=== PATIENT | male | born 1960 | race Two or more races ===

== ENCOUNTER 2018-10-16 14:00 | Inpatient (IN) | payer OTHER ==
[~2018-10-16] VITALS: Ht 152.4 cm; Wt 49.4 kg
--- NOTE | 2018-10-16 14:20 | NUR ---
BIB [facility] FOR [facility], PT WITH TRACHEOSTOMY HOOKED TO COOL AEROSOL, NOTED W G-TUBE, BLOOD NOTED AT PENILE AREA. TO ER BED 2, HOOKED TO MONITOR, CHANGED TO GOWN, , AWAITING MD DUKES.
--- NOTE | 2018-10-16 14:38 | NUR ---
DR PADILLA AT BEDSIDE
[2018-10-16] MEDS ORDERED: IV NS 0.9% 1,000 ML BAG IV ONE (15:00)
[2018-10-16 15:11] LABS: BASOPHILS % (AUTO) 0.3 % (0.0-2.0); EOSINOPHILS % (AUTO) 0.2 % (0.0-6.0); HEMATOCRIT 29 % (39-51); HEMOGLOBIN 9.5 g/dL (13.5-17.5); LYMPHOCYTES # (AUTO) 0.4 /CMM (0.8-4.8); LYMPHOCYTES % (AUTO) 2.3 % (20.0-44.0); MEAN CORPUSCULAR HGB CONC 33 g/dl (31.0-36.0); MEAN CORPUSCULAR VOLUME 89 fL (80-96); MONOCYTES # (AUTO) 0.6 /CMM (0.1-1.30); MONOCYTES % (AUTO) 3.2 % (2.0-12.0); NEUTROPHILS # (AUTO) 16.7 /CMM (1.8-8.9); PLATELET COUNT (AUTO) 478 /CMM (150-450); RED BLOOD CELL COUNT(AUTO) 3.23 MIL/uL (4.5-6.0); WHITE BLOOD COUNT (AUTO) 17.8 K/uL (4.3-11.0)
[2018-10-16 15:15] LABS: CALCIUM, SERUM 9.3 mg/dL (8.5-10.1); CARBON DIOXIDE 25 mmol/L (21-32); CHLORIDE 97 mmol/L (98-107); CREATININE 0.6 mg/dL (0.6-1.3); GLUCOSE 134 mg/dL (74-106); POTASSIUM 4.5 mmol/L (3.5-5.1); SODIUM SERUM 133 mmol/L (136-145); UREA NITROGEN, BLOOD 19 mg/dL (7-18)
[2018-10-16 15:20] LABS: ALANINE AMINOTRANSFERASE 30 U/L (12-78); ALBUMIN 2.6 g/dL (3.4-5.0); ALKALINE PHOSPHATASE 139 U/L (46-116); ASPARTATE AMINOTRANSFERASE 22 U/L (15-37); BILIRUBIN,DIRECT 0.1 mg/dL (0.0-0.2); BILIRUBIN,TOTAL 0.4 mg/dL (0.2-1.0); TOTAL PROTEIN, SERUM 7.9 g/dL (6.4-8.2)
[2018-10-16] MEDS ORDERED: LIDOCAINE 2% JEL UROJET 10 ML MM ONE (15:26)
--- NOTE | 2018-10-16 15:34 | NUR ---
UNSUCCESSFUL WITH INSERTING CASTRO CATHETER. AWARE
[2018-10-16] MEDS ORDERED: FENTANYL PF 100MCG/2ML AMPUL ONE (15:50)
[2018-10-16] MEDS ORDERED: FENTANYL PF 100MCG/2ML AMPUL IV ONE (16:00)
--- NOTE | 2018-10-16 16:06 | NUR ---
CALLED DR SÁNCHEZ OFFICE ([phone]), STAFF STATED THAT THY WOULD HAVE HIM CALL BACK.
[2018-10-16] MEDS ORDERED: METO50TA16 GT (16:11)
[2018-10-16] MEDS ORDERED: AMIN30LI2 GT (16:11)
[2018-10-16] MEDS ORDERED: ACET160S GT (16:11)
[2018-10-16] MEDS ORDERED: VIT500LI GT (16:11)
[2018-10-16] MEDS ORDERED: DEXT15DR6 EACHEYE (16:11)
[2018-10-16] MEDS ORDERED: DOCU50LI GT (16:11)
[2018-10-16] MEDS ORDERED: NA P133E RC (16:11)
[2018-10-16] MEDS ORDERED: LEVE100S2 GT (16:11)
[2018-10-16] MEDS ORDERED: ALBU2.5V38 IH (16:11)
[2018-10-16] MEDS ORDERED: CHLO473M3 MM (16:11)
[2018-10-16] MEDS ORDERED: CRAN425C6 PO (16:11)
[2018-10-16] MEDS ORDERED: CLON0.1T GT (16:11)
[2018-10-16] MEDS ORDERED: BISA10SU61 RC (16:11)
[2018-10-16] MEDS ORDERED: AMLO10TA7 GT (16:11)
[2018-10-16] MEDS ORDERED: LOSA100T31 GT (16:11)
[2018-10-16] MEDS ORDERED: MULT9LIQ5 GT (16:11)
[2018-10-16] MEDS ORDERED: LACT250L14 GT (16:11)
[2018-10-16] MEDS ORDERED: ALBU2.5V11 IH (16:11)
[2018-10-16] MEDS ORDERED: MAGN2400 GT (16:11)
[2018-10-16] MEDS ORDERED: IPRA0.2S9 IH ×2 (16:11)
[2018-10-16 16:22] LABS: APPEARANCE,URINE Cloudy (CLEAR); BILIRUBIN,URINE MODERATE (NEGATIVE); BLOOD, URINE Large Ery/uL (NEGATIVE); COLOR,URINE Amber (YELLOW); KETONES,URINE Trace (NEGATIVE); LEUKOCYTE ESTERASE ,URINE Large (NEGATIVE); NITRITE, URINE Positive (NEGATIVE); PROTEIN,URINE >=300 mg/dl (NEGATIVE); UGLUCOSE Negative (NEGATIVE)
[2018-10-16] MEDS ORDERED: PIPERACILLIN /TAZOBACTAM 3.375 G in IV D5W 50 ML IV ONE (17:00)
[2018-10-16 17:08] LABS: BACTERIA,URINE Moderate /HPF (None Seen); RBC,URINE 81-100 /HPF (0-2); SQUAMOUS EPITHELIAL CELL,UR Few /HPF (None Seen); WBC,URINE 51-80 /HPF (0-3)
[2018-10-16 17:09] LABS: URINE AMORPHOUS URATE Moderate /HPF (None Seen)
[2018-10-16 17:54] LABS: BAND % (MANUAL) 2 % (0.0-5.0); NEUTROPHILS % (MANUAL) 90 (42-76)
[2018-10-16 17:55] LABS: EOSINOPHILS % (MANUAL) 1 % (0-4); LYMPHOCYTES % (MANUAL) 2 % (16-48); MONOCYTES % (MANUAL) 5 % (0-11.0)
[2018-10-16] MEDS ORDERED: HYDROCODONE/APAP 10/325MG 1 EA TABLET GT PRN (18:00)
[2018-10-16] MEDS ORDERED: ACETAMINOPHEN 650 MG/SUPP.RECT RC PRN (18:00)
[2018-10-16] MEDS ORDERED: ALBUTEROL FS 2.5 MG/3 ML VIAL.NEB NEB PRN (18:00)
[2018-10-16] MEDS ORDERED: TEMAZEPAM 15 MG CAPSULE GT PRN (18:00)
[2018-10-16] MEDS ORDERED: MAG HYDROX/AL HYDROX/SIMETH 30 ML UDC PO PRN (18:00)
[2018-10-16] MEDS ORDERED: CLONIDINE HCL 0.1 MG TABLET GT PRN (18:00)
[2018-10-16] MEDS ORDERED: BISACODYL SUPP (10 MG) 10 MG/SUPP.RECT SUPP.RECT RC PRN (18:00)
[2018-10-16] MEDS ORDERED: MAGNESIUM HYDROXIDE 30 ML UDC PO PRN (18:00)
[2018-10-16] MEDS ORDERED: IPRATROPIUM NEB FS 0.5 MG/2.5 ML AMPUL.NEB NEB PRN (18:00)
[2018-10-16] MEDS ORDERED: ONDANSETRON HCL/PF 4 MG/2 ML VIAL IVP PRN (18:00)
[2018-10-16] MEDS ORDERED: ACETAMINOPHEN 325 MG TABLET MC PRN (18:00)
[2018-10-16] MEDS ORDERED: NA PHOS,M-B/NA PHOS,DI-BA 1 EA ENEMA RC PRN (18:00)
--- NOTE | 2018-10-16 18:04 | NUR ---
[facility] BED 105
--- NOTE | 2018-10-16 18:17 | NUR ---
REPORT GIVEN TO ROBERTA ELY OF [facility]
--- NOTE | 2018-10-16 18:30 | NUR ---
TD RN NOTES RECEIVED PATIENT FROM ER. PATIENT ALERT, NONE VERBAL. PATIENT ORIENTED TO ROOM. VS TAKEN. PATIENT STABLE. BED IN LOW LOCKED POSITION. PATIENT WITH TRACK PLACED ON 5L OF OXYGEN SATURATING 100%. PERIPHERAL IV INTACT PATENT. CALL LIGHT WITHIN REACH. WILL ENDORSE CARE TO PM SHIFT.
--- NOTE | 2018-10-16 19:56 | NUR ---
[facility] RN OPENING NOTES RECEIVED REPORT FROM MOO ELY. PATIENT A/A/O X2-3 W/ SOME CONFUSION BUT ABLE TO MAKE NEEDS KNOWN & STATE PAIN. BREATHING EVEN & UNLABORED W/ TRACH INTACT & TOLERATING COOL AEROSOL, SATING WELL @ 100%. ON TELE W/ SINUS RHYTHM, HR 95. LEFT AC IV #20 INTACT & PATENT W/ DRESSING CDI & IVF NS INFUSING WELL @ 75 ML/HR. G-TUBE PATENT & FLUSHING WELL. DENIES ANY PAIN OR DISCOMFORT @ THIS TIME. SAFETY MEASURES IN PLACE W/ SIDE RAILS UP & BED ALARM ON. INSTRUCTED TO USE CALL LIGHT FOR ASSISTANCE. WILL CONTINUE TO MONITOR.
[2018-10-16 20:00] VITALS: BP 99/63
[2018-10-16] MEDS ORDERED: PIPERACILLIN /TAZOBACTAM 3.375 G in IV D5W 50 ML IV SCH (21:00)
[2018-10-16] MEDS: CHLORHEXIDINE GLUCONATE 15 ML UDC MM SCH (21:33)
[2018-10-16] MEDS: ENOXAPARIN SODIUM 40 MG/0.4 ML DISP.SYRIN SQ SCH (21:35)
[2018-10-17] VITALS: BP 104/66
[2018-10-17] MEDS: PIPERACILLIN /TAZOBACTAM 3.375 G in IV D5W 100 ML IV SCH ×4 (00:14→23:56)
[2018-10-17] MEDS: IV NS 0.9% 1,000 ML IV PRN ×2 (00:27→16:13)
[2018-10-17 04:00] VITALS: BP 114/62
[2018-10-17 06:30] LABS: BASOPHILS # (AUTO) 0.2 /CMM (0.0-0.2); EOSINOPHILS % (AUTO) 1.6 % (0.0-6.0); HEMATOCRIT 24 % (39-51); HEMOGLOBIN 8.1 g/dL (13.5-17.5); LYMPHOCYTES # (AUTO) 0.8 /CMM (0.8-4.8); LYMPHOCYTES % (AUTO) 7.8 % (20.0-44.0); MEAN CORPUSCULAR HGB CONC 34 g/dl (31.0-36.0); MEAN CORPUSCULAR VOLUME 88 fL (80-96); MONOCYTES # (AUTO) 0.8 /CMM (0.1-1.30); MONOCYTES % (AUTO) 7.7 % (2.0-12.0); NEUTROPHILS # (AUTO) 8.5 /CMM (1.8-8.9); NEUTROPHILS % (AUTO) 80.9 % (43.0-81.0); PLATELET COUNT (AUTO) 409 /CMM (150-450); RED BLOOD CELL COUNT(AUTO) 2.75 MIL/uL (4.5-6.0); WHITE BLOOD COUNT (AUTO) 10.5 K/uL (4.3-11.0)
[2018-10-17 07:05] LABS: THYROID STIMULATING HORMONE 1.256 uIU/mL (0.358-3.74)
[2018-10-17 07:11] LABS: CALCIUM, SERUM 8.5 mg/dL (8.5-10.1); CREATININE 0.5 mg/dL (0.6-1.3); PHOSPHORUS 4.3 mg/dL (2.5-4.9); POTASSIUM 3.7 mmol/L (3.5-5.1)
--- NOTE | 2018-10-17 07:30 | NUR ---
[facility] RN AM NOTES RECEIVED PATIENT IN BEDD, A/A/O X2-3 W/ SOME CONFUSION BUT ABLE TO MAKE NEEDS KNOWN & STATE PAIN. YES/NO ANSWER. WITH PORTEX 7 TRACH ON COOL AEROSOL, FIO2 35% BREATHING EVEN & UNLABORED, ON TELE W/ SINUS RHYTHM, WITH PACs HR 85. LEFT AC IV #20 WITH NS AT 75 ML/HR INFUSING WELL. SITE CLEAR. G-TUBE PATENT, CHECKED FOR PLACEMENT, 0 RESIDUAL, CLAMPED FOR NOW. FOR NUTRITION EVAL. DENIES ANY PAIN OR DISCOMFORT @ THIS TIME. SAFETY MEASURES IN PLACE W/ SIDE RAILS UP & BED ALARM ON. INSTRUCTED TO USE CALL LIGHT FOR ASSISTANCE. WILL CONTINUE TO MONITOR.
[2018-10-17 08:00] VITALS: BP 105/70
[2018-10-17 08:12] LABS: BAND % (MANUAL) 1 % (0.0-5.0); EOSINOPHILS % (MANUAL) 1 % (0-4); LYMPHOCYTES % (MANUAL) 9 % (16-48); MONOCYTES % (MANUAL) 5 % (0-11.0); NEUTROPHILS % (MANUAL) 84 (42-76)
[2018-10-17] MEDS: POLYVINYL ALCOHOL 15 ML BOTTLE OP SCH ×2 (08:41→17:02)
[2018-10-17] MEDS: LEVETIRACETAM SOL (5 ML) 100 MG/ML UDC GT SCH ×2 (08:42→17:01)
[2018-10-17] MEDS: DOCUSATE SODIUM LIQ 100 MG/10 ML UDC GT SCH ×2 (08:42→17:00)
[2018-10-17] MEDS: CHLORHEXIDINE GLUCONATE 15 ML UDC MM SCH ×2 (08:43→20:15)
[2018-10-17] MEDS: MULTIVIT W/MINERALS 1 TAB TABLET GT SCH (08:43)
[2018-10-17] MEDS: PROSOURCE / PROSTAT (PYXIS) 30 ML UDC GT SCH (08:44)
[2018-10-17] MEDS: METOPROLOL TARTRATE 50 MG TABLET GT SCH ×2 (08:44→16:58)
--- NOTE | 2018-10-17 09:30 | NUR ---
[facility] RN NOTES DUE MEDS GIVEN.
--- NOTE | 2018-10-17 10:30 | NUR ---
[facility] RN NOTES PATIENT SEEN BY ACTUARIAL ASSOCIATE AND WITH RECOMMENDATION FOR JEVITY 1.2 GT FEEDING. PER HER PT ALSO IS ON PUREED DIET AND SUGGESTED FOR SWALLOW EVAL. WILL NOTIFY .
[2018-10-17 12:00] VITALS: BP 98/64
[2018-10-17 16:00] VITALS: BP 106/73
--- NOTE | 2018-10-17 19:21 | NUR ---
[facility] RN CLOSING NOTES PATIENT IN BED RESTING, A/A/O X2-3 W/ SOME CONFUSION BUT ABLE TO MAKE NEEDS KNOWN & STATE PAIN. BREATHING EVEN & UNLABORED W/ TRACH INTACT & TOLERATING COOL AEROSOL, SATING WELL @ 98% -100%. ON TELE W/ SINUS RHYTHM, HR 95. LEFT AC IV #20 INTACT & PATENT W/ DRESSING CDI & IVF NS INFUSING WELL @ 75 ML/HR. G-TUBE PATENT & FLUSHING WELL. DENIES ANY PAIN OR DISCOMFORT @ THIS TIME. SAFETY MEASURES IN PLACE W/ SIDE RAILS UP & BED ALARM ON. INSTRUCTED TO USE CALL LIGHT FOR ASSISTANCE. ALL NEEDS MET. PM CARE DONE. WITH FLEXISEAL IN PLACE. O OUTPUT. PM NURSE TO START GTF JEVITY, NOT AVAILABLE EARLIER. NO OTHER SIGNIFICANT CHANGE IN CONDITION. ENDORSED TO NEXT SHIFT FOR TITA.
--- NOTE | 2018-10-17 19:26 | NUR ---
TD RN NOTE: RECEIVED PT ON BED ALERT AND ORIENTED X2, ABLE TO ANSWER YES OR NO QUESTIONS. NO APPARENT DISTRESS NOTED. ON COOL AEROSOL FI02 35%, NO SOB NOTED. SATURATING WELL. NO FACIAL GRIMACING OR ANY SIGNS OF PAIN NOTED. SINUS RHYTHM ON TELE MONITOR HR 80BPM. GT INTACT AND PATENT, FLUSHING WELL. IV ON LEFT ANTECUBITAL #20 INTACT AND PATENT, IVF INFUSING WELL. KEPT CLEAN, DRY AND COMFORTABLE. CALL LIGHT PLACED WITHIN REACH. SAFETY AND FALL PRECAUTIONS OBSERVED AND MAINTAINED. WILL CONTINUE TO MONITOR PT.
[2018-10-17 20:00] VITALS: BP 113/75
[2018-10-17] MEDS: ENOXAPARIN SODIUM 40 MG/0.4 ML DISP.SYRIN SQ SCH (20:17)
[2018-10-18] VITALS: BP 109/78
[2018-10-18 04:00] VITALS: BP 111/64
[2018-10-18 06:50] LABS: BASOPHILS % (AUTO) 0.4 % (0.0-2.0); EOSINOPHILS % (AUTO) 1.7 % (0.0-6.0); HEMATOCRIT 24 % (39-51); HEMOGLOBIN 8.2 g/dL (13.5-17.5); LYMPHOCYTES # (AUTO) 1.2 /CMM (0.8-4.8); LYMPHOCYTES % (AUTO) 18.1 % (20.0-44.0); MEAN CORPUSCULAR HGB CONC 34 g/dl (31.0-36.0); MEAN CORPUSCULAR VOLUME 87 fL (80-96); MONOCYTES # (AUTO) 0.8 /CMM (0.1-1.30); MONOCYTES % (AUTO) 11.8 % (2.0-12.0); NEUTROPHILS # (AUTO) 4.3 /CMM (1.8-8.9); PLATELET COUNT (AUTO) 379 /CMM (150-450); RED BLOOD CELL COUNT(AUTO) 2.76 MIL/uL (4.5-6.0); WHITE BLOOD COUNT (AUTO) 6.4 K/uL (4.3-11.0)
[2018-10-18 07:03] LABS: CALCIUM, SERUM 8.5 mg/dL (8.5-10.1); CREATININE 0.5 mg/dL (0.6-1.3); MAGNESIUM 2.1 mg/dL (1.8-2.4); POTASSIUM 3.4 mmol/L (3.5-5.1)
--- NOTE | 2018-10-18 07:13 | NUR ---
TD RN NOTE: NO CHANGES NOTED THROUGHOUT THE SHIFT. NO APPARENT DISTRESS NOTED. DENIES PAIN AND DISCOMFORT AT THIS TIME. ON COOL AEROSOL, SATURATING WELL. NO SOB NOTED. SUCTIONED NEEDED. ON TELE MONITOR SINUS RHYTHM HR 80BPM. IV ON LEFT ANTECUBITAL #20 INTACT AND PATENT, IVF INFUSING WELL. GT INTACT, ABLE TO TOLERATE FEEDING WELL. NO RESIDUAL NOTED AT THIS TIME. CALL LIGHT PLACED WITHIN REACH. KEPT CLEAN, DRY AND COMFORTABLE. SAFETY AND FALL PRECAUTIONS OBSERVED AND MAINTAINED. WILL ENDORSE TO DAY SHIFT RN FOR CONTINUITY OF CARE.
--- NOTE | 2018-10-18 07:30 | NUR ---
[facility] RN AM NOTES RECEIVED PATIENT IN BEDD, A/A/O X2-3 W/ SOME CONFUSION BUT ABLE TO MAKE NEEDS KNOWN & STATE PAIN. YES/NO ANSWER. WITH PORTEX 7 TRACH ON COOL AEROSOL, FIO2 35% BREATHING EVEN & UNLABORED, ON TELE W/ SINUS RHYTHM, HR 85. LEFT AC IV #20 WITH NS AT 75 ML/HR INFUSING WELL. SITE CLEAR. G-TUBE CHECKED FOR PLACEMENT. WITH ONGOING JEVITY AT 35 ML/HR WELL TOLERATED. 0 RESIDUAL, DENIES ANY PAIN OR DISCOMFORT @ THIS TIME. SAFETY MEASURES IN PLACE W/ SIDE RAILS UP & BED ALARM ON. INSTRUCTED TO USE CALL LIGHT FOR ASSISTANCE. WILL CONTINUE TO MONITOR.
[2018-10-18 08:00] VITALS: BP 106/70
--- NOTE | 2018-10-18 08:27 | NUR ---
[facility] RN NOTES DR. SÁNCHEZ AT BEDSIDE. RELAYED. CRITICAL LAB RESULT: POSITIVE BLOOD CULTURE 1 OUT OF 4 GRAM [-] RODS.
[2018-10-18] MEDS: MULTIVIT W/MINERALS 1 TAB TABLET GT SCH (08:43)
[2018-10-18] MEDS: PIPERACILLIN /TAZOBACTAM 3.375 G in IV D5W 100 ML IV SCH ×2 (08:43→17:18)
[2018-10-18] MEDS: DOCUSATE SODIUM LIQ 100 MG/10 ML UDC GT SCH ×2 (08:43→17:20)
[2018-10-18] MEDS: LEVETIRACETAM SOL (5 ML) 100 MG/ML UDC GT SCH ×2 (08:44→17:20)
[2018-10-18] MEDS: POLYVINYL ALCOHOL 15 ML BOTTLE OP SCH ×2 (08:44→17:20)
[2018-10-18] MEDS: CHLORHEXIDINE GLUCONATE 15 ML UDC MM SCH ×2 (08:44→21:44)
[2018-10-18] MEDS: METOPROLOL TARTRATE 50 MG TABLET GT SCH ×2 (08:45→17:19)
[2018-10-18] MEDS: PROSOURCE / PROSTAT (PYXIS) 30 ML UDC GT SCH (08:45)
[2018-10-18 09:20] LABS: BAND % (MANUAL) 1 % (0.0-5.0); EOSINOPHILS % (MANUAL) 2 % (0-4); LYMPHOCYTES % (MANUAL) 17 % (16-48); MONOCYTES % (MANUAL) 6 % (0-11.0); NEUTROPHILS % (MANUAL) 74 (42-76)
--- NOTE | 2018-10-18 09:30 | NUR ---
[facility] RN NOTES DUE MEDS GIVEN.
[2018-10-18] MEDS ORDERED: POTASSIUM CHLORIDE 20 MEQ POWDER PACKET GT SCH (11:30)
[2018-10-18 12:00] VITALS: BP 106/70
--- NOTE | 2018-10-18 12:06 | NUR ---
[facility] RN NOTES REPORT GIVEN TO HERSON FOR TITA
--- NOTE | 2018-10-18 12:07 | NUR ---
RECEIVED REPORT FROM CHIDI ELY. PATIENT A/OX2, NO ACUTE DISTRESS OR SOB NOTED. 8L O2 VIA T PIECE. PULSE OX ATTACHED, ALARM AUDIBLE. TELE MONITOR ATTACHED SINUS RHYTHM, HR 72. GT SITE C/D/I, RUNNING FEEDING @45mL/HR. NO RESIDUAL NOTED. L AC 20G RUNNING NS @75mL/HR. NO S/S INFILTRATION. BED LOCKED, LOW, SIDE RAILS UPX2, BED ALARM ON AND AUDIBLE, CALL LIGHT WITHIN REACH. WILL CONTINUE TO MONITOR
[2018-10-18 16:00] VITALS: BP 114/77
--- NOTE | 2018-10-18 17:14 | NUR ---
PATIENT CONFUSED PULLED IV OUT,UNABLE TO FOLLOW INSTRUCTIONS,ALSO TRYING TO TRACH LINE OUT, NOTIFIED,INITIATED BILATERAL WRIST RESTRAINT FOR SAFETY,WILL CONTINUE TO MONITOR.
[2018-10-18 20:00] VITALS: BP 134/87
--- NOTE | 2018-10-18 20:00 | NUR ---
RN INITIAL NOTES RECEIVED PATIENT IN BED, A&O X1 W/ CONFUSION, BUT ABLE TO MAKE NEEDS KNOWN & STATE PAIN. YES/NO ANSWER. WITH PORTEX 7 TRACH ON COOL AEROSOL, FIO2 35% BREATHING EVEN & UNLABORED, ON TELE W/ SINUS RHYTHM, HR 85. LEFT AC IV #20 WITH NS AT 75 ML/HR INFUSING WELL. SITE CLEAR. G-TUBE CHECKED FOR PLACEMENT. WITH ONGOING JEVITY AT 35 ML/HR WELL TOLERATED. 0 RESIDUAL, DENIES ANY PAIN OR DISCOMFORT @ THIS TIME. SAFETY MEASURES IN PLACE W/ SIDE RAILS UP & BED ALARM ON. INSTRUCTED TO USE CALL LIGHT FOR ASSISTANCE. WILL CONTINUE TO MONITOR.
[2018-10-18] MEDS: ENOXAPARIN SODIUM 40 MG/0.4 ML DISP.SYRIN SQ SCH (21:45)
--- NOTE | 2018-10-18 22:00 | NUR ---
RN NOTES PATIENT CONFUSED REMOVED ROD WRIST RESTRAINT. PULLED IV OUT IV,PULLED OUT FLEXI SEAL. UNABLE TO FOLLOW INSTRUCTIONS, BILATERAL WRIST RESTRAINT REAPPLIED FOR SAFETY,WILL CONTINUE TO MONITOR.
[2018-10-19] VITALS: BP_SYST 130; BP_SYST 134; BP_DIAS 84; BP_DIAS 87
[2018-10-19] MEDS: PIPERACILLIN /TAZOBACTAM 3.375 G in IV D5W 100 ML IV SCH ×4 (00:09→23:19)
[2018-10-19 04:00] VITALS: BP 118/82
[2018-10-19] MEDS: JEVITY 1.2 CAL 1,000 ML BOTTLE GT SCH (05:06)
--- NOTE | 2018-10-19 05:35 | NUR ---
RT NOTE PT REMOVED WRIST RESTRAINTS. PULLED OUT IV R FA FROM. TRIED TO REMOVED TRACH, RT CALLED. PT MOVED TO ANOTHER [facility] FOR SAFETY. WILL CONTINUE TO MONITOR PATIENT.
--- NOTE | 2018-10-19 05:50 | NUR ---
RT NOTE RT RESPONDED,PT NOTED WITH DIALOGED TRACH , PT STABLE, VSS, O2 96%, NEW TRACH PLACED. PORTEX #6. PATIENT TOLERATED PORTEX #6. WILL CONTINUE TO MONITOR PATIENT.
--- NOTE | 2018-10-19 06:15 | NUR ---
RT NOTE AT 0540 RESPONDED TO PATIENT WHO PULLED OUT TRACH PORTEX # 7 . HAD A DIFFICULTY REINSERTING SAME SIZE TRACH DOWNSIZED TO PORTEX #6. MD WAS NOTIFIED AND CHARGE NURSE AWARE.PATIENT TOLERATED PORTEX #6 . MINIMAL BLEEDING WAS NOTED. WILL CONTINUE TO MONITOR PATIENT. Addendum: 10/19/18 at 0622 by JEAN CURTIS RT Amended: Links added.
[2018-10-19 06:35] LABS: CALCIUM, SERUM 8.8 mg/dL (8.5-10.1); CREATININE 0.4 mg/dL (0.6-1.3); POTASSIUM 3.7 mmol/L (3.5-5.1)
--- NOTE | 2018-10-19 06:39 | NUR ---
RN CLOSING NOTES PATIENT WAS MOVED TO ANOTHER ROOM FOR SAFETY. PT RESTING IN BED RESTING, A/A/O X1 W/ CONFUSION. BREATHING EVEN & UNLABORED W/ TRACH INTACT & TOLERATING COOL AEROSOL, SATING WELL @ 98% -100%. ON TELE W/ SINUS RHYTHM, HR 95. LEFT RA IV #20 INTACT & PATENT W/ DRESSING CDI & IVF NS INFUSING WELL @ 75 ML/HR. G-TUBE PATENT & FLUSHING WELL FEEDING INFUSING. DENIES ANY PAIN OR DISCOMFORT @ THIS TIME. SAFETY MEASURES IN PLACE W/ SIDE RAILS UP & BED ALARM ON. INSTRUCTED TO USE CALL LIGHT FOR ASSISTANCE. ALL NEEDS MET. PM CARE DONE. WILL ENDORSED TO NEXT SHIFT FOR TITA.
--- NOTE | 2018-10-19 07:38 | NUR ---
RN NOTE: PATIENT REMAINS ALERT AWAKE ORIENTED X 1 WITH PERIODS OF CONFUSION, FORGET FULLNESS. ON T-PIECE AT 35% FIO2. NO BREATHING DISTRESS NOTED. G-TUBE INTACT, RUNNING WITH TUBE FEEDING, TOLERATING WELL. NO RESIDUAL NOTED. ASPIRATION PRECAUTIONS OBSERVED. IV INTACT, RUNNING WITH IV FLUIDS ORDERED. SAFETY MEASURES OBSERVED. BILATERAL SOFT RESTRAINTS ON. CONTINUE TO MONITOR.
[2018-10-19 08:00] VITALS: BP 118/85
[2018-10-19] MEDS: IV NS 0.9% 1,000 ML IV PRN (08:28)
[2018-10-19] MEDS: PROSOURCE / PROSTAT (PYXIS) 30 ML UDC GT SCH (08:36)
[2018-10-19] MEDS: MULTIVIT W/MINERALS 1 TAB TABLET GT SCH (08:36)
[2018-10-19] MEDS: LEVETIRACETAM SOL (5 ML) 100 MG/ML UDC GT SCH ×2 (08:36→16:25)
[2018-10-19] MEDS: CHLORHEXIDINE GLUCONATE 15 ML UDC MM SCH ×2 (08:36→20:45)
[2018-10-19] MEDS: METOPROLOL TARTRATE 50 MG TABLET GT SCH ×2 (08:37→16:31)
[2018-10-19] MEDS: DOCUSATE SODIUM LIQ 100 MG/10 ML UDC GT SCH ×2 (08:37→16:23)
[2018-10-19] MEDS: POLYVINYL ALCOHOL 15 ML BOTTLE OP SCH ×2 (08:37→16:26)
[2018-10-19] MEDS: HYDROCODONE/APAP 5/325MG 1 EACH TABLET GT PRN ×2 (09:40→16:26)
[2018-10-19 12:00] VITALS: BP 103/72
--- NOTE | 2018-10-19 14:18 | NUR ---
dr. branch seen and examined patient made aware patient still confused and pulling lines / trach,will continue to monitor and obtained sitter.
[2018-10-19 16:00] VITALS: BP 125/50
--- NOTE | 2018-10-19 17:59 | NUR ---
RN NOTE: PATIENT REMAINS ALERT AWAKE ORIENTED X 1. ON T-PIECE WITH FIO2 35%. NO BREATHING DISTRESS NOTED. CONTINUE TO ATTEMPT TO PULL LINES, TRAC, TRIES TO GET UP FROM BED. CONTINUE WITH BILATERAL SOFT RESTRAINTS, SITTER AT BEDSIDE. NO FALL/INJURY NOTED. SAFETY MEASURES OBSERVED. CONTINUE TO MONITOR.
[2018-10-19 20:00] VITALS: BP 125/50
--- NOTE | 2018-10-19 20:00 | NUR ---
RN INITIAL NOTES RECEIVED PATIENT IN BED,SITTER AT BED SIDE. A&O X1 W/ CONFUSION, BUT ABLE TO MAKE NEEDS KNOWN & STATE PAIN. YES/NO ANSWER. WITH PORTEX #6 TRACH ON COOL AEROSOL, FIO2 35% BREATHING EVEN & UNLABORED, ON TELE W/ SINUS RHYTHM, HR 79. LEFT AC IV #20 WITH NS AT 75 ML/HR INFUSING WELL. SITE CLEAR. G-TUBE CHECKED FOR PLACEMENT. WITH ONGOING JEVITY AT 55 ML/HR WELL TOLERATED. 0 RESIDUAL, DENIES ANY PAIN OR DISCOMFORT @ THIS TIME. SAFETY MEASURES IN PLACE W/ SIDE RAILS UP & BED ALARM ON. INSTRUCTED TO USE CALL LIGHT FOR ASSISTANCE. WILL CONTINUE TO MONITOR.
[2018-10-19] MEDS: ENOXAPARIN SODIUM 40 MG/0.4 ML DISP.SYRIN SQ SCH (20:46)
[2018-10-20] VITALS (7 sets, daily range): BP systolic 96–106; BP diastolic 58–69
[2018-10-20] MEDS: JEVITY 1.2 CAL 1,000 ML BOTTLE GT SCH ×2 (03:27→21:34)
--- NOTE | 2018-10-20 06:38 | NUR ---
RN CLOSING NOTES PT RESTING IN BED RESTING, A/A/O X1 W/ CONFUSION. SITTER AT THE BEDSIDE. BREATHING EVEN & UNLABORED W/ TRACH INTACT & TOLERATING COOL AEROSOL, SATING WELL @ 98% -100%. ON TELE W/ SINUS RHYTHM, HR 70S. LEFT FA IV #20 INTACT & PATENT W/ DRESSING CDI & IVF NS INFUSING WELL @ 75 ML/HR. G-TUBE PATENT & FLUSHING WELL FEEDING INFUSING. DENIES ANY PAIN OR DISCOMFORT @ THIS TIME. SAFETY MEASURES IN PLACE W/ SIDE RAILS UP & BED ALARM ON. INSTRUCTED TO USE CALL LIGHT FOR ASSISTANCE. ALL NEEDS MET. PM CARE DONE. WILL ENDORSED TO NEXT SHIFT FOR TITA.
[2018-10-20 06:55] LABS: BASOPHILS % (AUTO) 0.7 % (0.0-2.0); EOSINOPHILS % (AUTO) 2.1 % (0.0-6.0); HEMATOCRIT 28 % (39-51); HEMOGLOBIN 9.1 g/dL (13.5-17.5); LYMPHOCYTES # (AUTO) 1.8 /CMM (0.8-4.8); LYMPHOCYTES % (AUTO) 29.3 % (20.0-44.0); MEAN CORPUSCULAR HGB CONC 33 g/dl (31.0-36.0); MEAN CORPUSCULAR VOLUME 87 fL (80-96); MONOCYTES # (AUTO) 0.7 /CMM (0.1-1.30); NEUTROPHILS # (AUTO) 3.4 /CMM (1.8-8.9); NEUTROPHILS % (AUTO) 56.9 % (43.0-81.0); PLATELET COUNT (AUTO) 468 /CMM (150-450); RED BLOOD CELL COUNT(AUTO) 3.15 MIL/uL (4.5-6.0)
[2018-10-20 07:11] LABS: CALCIUM, SERUM 8.6 mg/dL (8.5-10.1); CREATININE 0.5 mg/dL (0.6-1.3); MAGNESIUM 2.2 mg/dL (1.8-2.4); PHOSPHORUS 5.6 mg/dL (2.5-4.9); POTASSIUM 4.1 mmol/L (3.5-5.1)
--- NOTE | 2018-10-20 07:25 | NUR ---
TELE/[facility] RN INITIAL NOTES Report received. Patient received in bed, sleeping comfortably, easily aroused. On restraints for risk of injury with one-on-one sitter. On T-piece trach with no SOB/labored breathing noted. No s&s of distress. Will continue to monitor and assess patient. Addendum: 10/20/18 at 1148 by OSCAR TURNER RN Tele monitoring: @[id number] HR: [id number]
[2018-10-20] MEDS: LEVETIRACETAM SOL (5 ML) 100 MG/ML UDC GT SCH ×2 (08:42→17:42)
[2018-10-20] MEDS: DOCUSATE SODIUM LIQ 100 MG/10 ML UDC GT SCH ×2 (08:42→17:42)
[2018-10-20] MEDS: PIPERACILLIN /TAZOBACTAM 3.375 G in IV D5W 100 ML IV SCH ×2 (08:42→15:24)
[2018-10-20] MEDS: CHLORHEXIDINE GLUCONATE 15 ML UDC MM SCH ×2 (08:42→21:34)
[2018-10-20] MEDS: PROSOURCE / PROSTAT (PYXIS) 30 ML UDC GT SCH (08:43)
[2018-10-20] MEDS: METOPROLOL TARTRATE 50 MG TABLET GT SCH ×2 (08:43→17:00)
[2018-10-20] MEDS: MULTIVIT W/MINERALS 1 TAB TABLET GT SCH (08:43)
[2018-10-20] MEDS: POLYVINYL ALCOHOL 15 ML BOTTLE OP SCH ×2 (08:49→17:42)
[2018-10-20] MEDS: IV NS 0.9% 1,000 ML IV PRN (15:24)
--- NOTE | 2018-10-20 17:55 | NUR ---
MS/[facility] RN NOTES Orders from Dr. Lion Lamb to renew medical restraint to prevent risks for injury. Will continue to monitor and assess patient
--- NOTE | 2018-10-20 18:14 | NUR ---
MS/[facility] RN NOTES Called RT for trach adjustment support. Attempted to suction but suction tube would not advance, resistance present. Awaiting for response. Will continue to monitor and assess patient. Addendum: 10/20/18 at 1825 by OSCAR TURNER RN RT came adjust, suction and assess patient
--- NOTE | 2018-10-20 18:59 | NUR ---
MS/[facility] RN NOTES Patient remained in bed, intermittently sleeping, easily aroused/comfortable. Alert and oriented to self, verbally responsive. On T-piece with SpO2 98%, no SOB/labored breathing noted. Not in any type of distress. No complaints of pain/discomfort. On Gtube feeding - tolerating well. On bilateral soft restraints for risk for injury - renewed per Dr's order. All needs provided and met. All due meds given and tolerated. HOB elevated at all times to prevent aspiration. Safety measures in place. Bed in lowest position with call light within reach and bed alarm on. Endorsed to oncoming shift nurse. Tele monitor: HR:[id number]
[2018-10-20] MEDS: ENOXAPARIN SODIUM 40 MG/0.4 ML DISP.SYRIN SQ SCH (21:35)
[2018-10-21] VITALS: BP_SYST 130; BP_SYST 134; BP_DIAS 60; BP_DIAS 80
[2018-10-21] MEDS: PIPERACILLIN /TAZOBACTAM 3.375 G in IV D5W 100 ML IV SCH ×3 (00:36→16:00)
[2018-10-21 04:00] VITALS: BP 130/79
[2018-10-21 04:07] VITALS: BP_SYST 130; BP_DIAS 65; BP_DIAS 79
[2018-10-21 06:32] LABS: BASOPHILS % (AUTO) 0.7 % (0.0-2.0); EOSINOPHILS % (AUTO) 1.9 % (0.0-6.0); HEMATOCRIT 27 % (39-51); LYMPHOCYTES # (AUTO) 1.8 /CMM (0.8-4.8); LYMPHOCYTES % (AUTO) 25.1 % (20.0-44.0); MEAN CORPUSCULAR HGB CONC 34 g/dl (31.0-36.0); MEAN CORPUSCULAR VOLUME 87 fL (80-96); MONOCYTES # (AUTO) 0.6 /CMM (0.1-1.30); MONOCYTES % (AUTO) 7.9 % (2.0-12.0); NEUTROPHILS # (AUTO) 4.7 /CMM (1.8-8.9); NEUTROPHILS % (AUTO) 64.4 % (43.0-81.0); PLATELET COUNT (AUTO) 482 /CMM (150-450); RED BLOOD CELL COUNT(AUTO) 3.08 MIL/uL (4.5-6.0); WHITE BLOOD COUNT (AUTO) 7.4 K/uL (4.3-11.0)
[2018-10-21 07:13] LABS: CALCIUM, SERUM 8.6 mg/dL (8.5-10.1); CREATININE 0.4 mg/dL (0.6-1.3); PHOSPHORUS 4.7 mg/dL (2.5-4.9); POTASSIUM 3.9 mmol/L (3.5-5.1)
--- NOTE | 2018-10-21 07:20 | NUR ---
STATE EDITOR OPENING NOTES RECEIVED REPORT FROM EXTERMINATOR RN. PT IN BED SLEEPING BUT EASILY AWOKEN VERBALLY OR BY TOUCH. PT A/O X2 AND ABLE TO MAKE NEEDS KNOWN. PT ON T-PIECE WITH O2 @98%. RESPIRATIONS EVEN AND UNLABORED WITH NO S/S OF ACUTE DISTRESS OR SOB NOTED. PT ON GTUBE FEEDING AND TOLERATING WELL. PT WITH ORDER FOR BILATERAL SOFT RESTRAINTS FOR RISK OF INJURY, CURRENTLY ON PT BEGAN TO START PULLING TUBING. HOB ELEVATED AT ALL TIMES. SAFETY MEASURES IN PLACE WITH BED IN LOWEST LOCKED POSITION WITH SIDE RAILS UP X3. CALL LIGHT WITHIN REACH. WILL CONTINUE TO MONITOR.
--- NOTE | 2018-10-21 07:31 | NUR ---
MS RN NOTES PT IN BED SLEEPING BUT EASILY AWOKEN VERBALLY OR BY TOUCH. PT A/O X2 AND ABLE TO MAKE NEEDS KNOWN. PT ON T-PIECE WITH O2 @98%. RESPIRATIONS EVEN AND UNLABORED WITH NO S/S OF ACUTE DISTRESS OR SOB NOTED. PT ON GTUBE FEEDING AND TOLERATING WELL. PT WITH ORDER FOR BILATERAL SOFT RESTRAINTS FOR RISK OF INJURY, CURRENTLY OFF PT NOT PULLING TUBING. HOB ELEVATED AT ALL TIMES. SAFETY MEASURES IN PLACE WITH BED IN LOWEST LOCKED POSITION WITH SIDE RAILS UP X3. CALL LIGHT WITHIN REACH. WILL ENDORSE TO ONCOMING NURSE FOR TITA.
[2018-10-21 08:00] VITALS: BP 110/75
[2018-10-21] MEDS: LEVETIRACETAM SOL (5 ML) 100 MG/ML UDC GT SCH (08:47)
[2018-10-21] MEDS: DOCUSATE SODIUM LIQ 100 MG/10 ML UDC GT SCH (08:47)
[2018-10-21] MEDS: CHLORHEXIDINE GLUCONATE 15 ML UDC MM SCH (08:48)
[2018-10-21] MEDS: METOPROLOL TARTRATE 50 MG TABLET GT SCH (08:48)
[2018-10-21] MEDS: MULTIVIT W/MINERALS 1 TAB TABLET GT SCH (08:48)
[2018-10-21] MEDS: PROSOURCE / PROSTAT (PYXIS) 30 ML UDC GT SCH (08:53)
[2018-10-21] MEDS: POLYVINYL ALCOHOL 15 ML BOTTLE OP SCH (08:53)
[2018-10-21 12:00] VITALS: BP 109/76
--- NOTE | 2018-10-21 14:36 | NUR ---
REPORT CALLED TO JOSÉ ANTONIO ELY AT [facility]. ACCEPTD PT AND STATED TO SEND PT WITH IV.
[2018-10-21 16:00] VITALS: BP 122/83
--- NOTE | 2018-10-21 17:36 | NUR ---
RN D/C NOTES GAVE REPORT TO JOSÉ ANTONIO AT [facility]. LAST SET OF VITALS TAKEN. BELONGINGS LIST GIVEN. REPORT GIVEN TO EMT'S. RT CALLED TO SWITCH ADAPTER TO EMT O2 TANK. PT DENIES ANY SOB OR PAIN AT TIME OF DISCHARGE. PT IS STABLE.
== END 2018-10-21 17:48 | DRG 720 ==
LOC: ER 14:03 → TELE-TD 18:06 → TELE1 10-18 16:28
PROVIDERS: ADMIT Legal Medicine; ATTEND Legal Medicine
DX: A41.9 Sepsis, unspecified organism (principal); J96.21 Acute and chronic respiratory failure with hypoxia; G93.41 Metabolic encephalopathy; E44.0 Moderate protein-calorie malnutrition; R53.2 Functional quadriplegia; E87.2 Acidosis; R13.10 Dysphagia, unspecified; D68.59 Other primary thrombophilia; G40.909 Epilepsy, unspecified, not intractable, without status epilepticus; N39.0 Urinary tract infection, site not specified; J44.9 Chronic obstructive pulmonary disease, unspecified; Z86.73 Personal history of transient ischemic attack (TIA), and cerebral infarction without residual deficits; I10 Essential (primary) hypertension; D64.9 Anemia, unspecified; Z79.51 Long term (current) use of inhaled steroids; Z79.899 Other long term (current) drug therapy; B96.89 Other specified bacterial agents as the cause of diseases classified elsewhere; D47.3 Essential (hemorrhagic) thrombocythemia; N13.9 Obstructive and reflux uropathy, unspecified; R31.9 Hematuria, unspecified; R79.89 Other specified abnormal findings of blood chemistry; D63.8 Anemia in other chronic diseases classified elsewhere; Z87.891 Personal history of nicotine dependence; F10.21 Alcohol dependence, in remission; R65.20 Severe sepsis without septic shock
CPT/HCPCS: 31720; 36415; 71045-TC; 71250-TC; 80048-TC; 80061-TC; 80076-TC; 81000-TC; 83605-TC; 83735-TC; 84100-TC; 84443-TC; 84484-TC; 85025-TC; 85730-TC; 87040-TC; 87081-TC; 87086-TC; 87186-TC; 92526; 92611-TC; 94640-TC; 94760-TC; 94762-TC; A4623; G0378; J1650; J1953; J2543; J3010; J3490; J7030; J7060

== ENCOUNTER 2020-02-11 12:07 | Emergency (ER) | payer MEDICAID, OTHER ==
[~2020-02-11] VITALS: Ht 152.4 cm; Wt 65.8 kg
[~2020-02-11 12:07] MED LIST: ACET160S GT; ALBU2.5V11 IH; ALBU2.5V38 IH; AMIN30LI2 GT; AMLO10TA7 GT; BISA10SU61 RC; CHLO473M3 MM; CLON0.1T GT; CRAN425C6 PO; DEXT15DR6 EACHEYE; DOCU50LI GT; IPRA0.2S9 IH; LACT250L14 GT; LEVE100S2 GT; LOSA100T31 GT; MAGN24002 GT; METO50TA16 GT; MULT9LIQ5 GT; NA P133E RC; VIT500LI GT
--- NOTE | 2020-02-11 12:15 | NUR ---
ER BED 13 PT BIB MEDICS. PER REPORT PT HAS BEEN DRINKING, PT IS LETHARGIC AT THIS TIME, AROUSABLE, BUT APPEARS TO BE VERY DRUNK. HE STATES THAT HES BRRN DRINKING A LOT LATELY. VS CHECKED. O2 SAT NOTED AT 91%, SUPPLEMENTAL O2 GIVEN, O2 SAT WENT UP TO 95%. AWAITING TO BE SEEN BY .
--- NOTE | 2020-02-11 13:21 | NUR ---
O2 SAT PT TAPERED OFF O2, O2 SAT 98% ON ROOM AIR. AROUSABLE BUT PT STILL VERY SLEEPY
--- NOTE | 2020-02-11 19:37 | NUR ---
Patient discharged to home in stable condition. Written and verbal after care instructions given. Patient verbalizes understanding of instruction. Pt ambulated with steady gait. vss.
[2020-02-11 19:39] VITALS: BP 111/69
== END 2020-02-11 19:40 | disposition home or self-care (01) ==
LOC: ER 12:17
DX: F10.10 Alcohol abuse, uncomplicated (principal); R53.1 Weakness; I10 Essential (primary) hypertension; Z60.2 Problems related to living alone; Z79.899 Other long term (current) drug therapy; Y90.9 Presence of alcohol in blood, level not specified

== ENCOUNTER 2022-01-27 14:39 | Emergency (ER) | payer MEDICAID ==
[~2022-01-27] VITALS: Ht 162.6 cm; Wt 56.7 kg
[~2022-01-27 14:39] MED LIST changes: +AMLO-213 GT; -AMLO10TA7 GT
--- NOTE | 2022-01-27 15:02 | NUR ---
To ER bed 15, PEG RA881 Found on the streets intoxicated/alcohol abuse states "Im hungry", aaox2, breathing even and non labored, connected to monitor
--- NOTE | 2022-01-27 15:02 | NUR ---
Ani morris in EDM - 01/27/22 at 1634 by RODRIGO To ER bed 15, BIBA [id number] Found on the streets intoxicated/alcohol abuse states "Im hungry", aaox2, breathing even and non labored, connected to monitor, awaiting orders
--- NOTE | 2022-01-27 15:20 | NUR ---
LUNCH TRAY PROVIDED, TOLERATED WELL
--- NOTE | 2022-01-27 16:57 | NUR ---
ASLEEP, EASILY AROUSABLE, BREATHING EVEN AND NON LABORED
--- NOTE | 2022-01-27 20:45 | NUR ---
Patient discharged to home in stable condition. Written and verbal after care instructions given. Patient verbalizes understanding of instruction.
[2022-01-27 21:11] VITALS: BP 112/70
== END 2022-01-27 21:15 | disposition home or self-care (01) ==
LOC: ER 14:45
DX: F10.129 Alcohol abuse with intoxication, unspecified (principal); I10 Essential (primary) hypertension; Z60.2 Problems related to living alone; Z79.899 Other long term (current) drug therapy; Y90.9 Presence of alcohol in blood, level not specified

== ENCOUNTER 2022-01-28 00:33 | Emergency (ER) | payer MEDICAID ==
[~2022-01-28] VITALS: Ht 162.6 cm; Wt 56.7 kg
[2022-01-28 00:40] VITALS: BP 128/64
--- NOTE | 2022-01-28 00:40 | NUR ---
[id number] FROM [place] C/O [employer] FINDING PT ON SIDE WALK LAYING DOWN. PATIENT IS AWAKE BUT SLEEPY. EXAMINED BY DR GARCIA. PLACED COMFORTABLY IN BED 14. VITALS CHECKED.
--- NOTE | 2022-01-28 05:43 | NUR ---
Patient discharged to home in stable condition. Written and verbal after care instructions given. Patient verbalizes understanding of instruction.
== END 2022-01-28 05:43 | disposition home or self-care (01) ==
LOC: ER 00:35
DX: F10.10 Alcohol abuse, uncomplicated (principal); I10 Essential (primary) hypertension; Z60.2 Problems related to living alone; Z79.899 Other long term (current) drug therapy; Y90.9 Presence of alcohol in blood, level not specified
CPT/HCPCS: 70450-TC